=== PATIENT | male | born 1970 | race Caucasian/White ===

== ENCOUNTER 2016-08-07 14:59 | Day surgery (SDCO) | payer OTHER ==
[~2016-08-07] VITALS: Ht 195.6 cm; Wt 121.6 kg
[2016-08-07 15:25] LABS: BASOPHIL 0.3 % (0-2); HGB 16.6 g/dl (13.2-18.0); LYMPHOCYTE 37.3 % (15-48); MCH 31.3 pg (25.0-31.0); MCHC 37.7 g/dL (32.0-36.0); MPV 10.3 fL (6.0-9.5); NEUTROPHIL 51.4 % (41-80); PLT 228 K/uL (150-400); RDW 13.2 % (11.5-14.0); WBC 6.6 K/uL (4.0-10.5)
[2016-08-07 15:34] LABS: INR 1.05 (0.9-1.2); PROTHROMBIN TIME 13.3 SECONDS (11.7-14.0); PTT 23.8 SECONDS (23.2-31.4)
[2016-08-07 15:42] LABS: ALBUMIN 4.2 g/dL (3.5-5.0); BILIRUBIN - TOTAL 1.2 mg/dL (0.1-1.0); MAGNESIUM 1.79 mg/dL (1.40-2.10); POTASSIUM 4.5 mmol/L (3.5-5.1); TOTAL PROTEIN 7.2 g/dL (6.4-8.3)
[2016-08-07 16:01] LABS: CKMB 3.13 ng/mL (0.97-4.94); MYOGLOBIN 37 ng/mL (26-65); PRO-BNP 5 pg/mL (0-125); TROPONIN T < 0.010 ng/mL
[2016-08-07 21:30] LABS: CKMB 2.44 ng/mL (0.97-4.94); TROPONIN T < 0.010 ng/mL
[2016-08-08 03:32] LABS: CKMB 2.15 ng/mL (0.97-4.94); TROPONIN T < 0.010 ng/mL
== END 2016-08-08 11:45 | disposition other institution (70) ==
LOC: FER 14:59 → FICU 16:29
PROVIDERS: Emergency Medicine; ADMIT Internal Medicine
DX: I24.9 Acute ischemic heart disease, unspecified (principal); I10 Essential (primary) hypertension; K21.9 Gastro-esophageal reflux disease without esophagitis; E11.9 Type 2 diabetes mellitus without complications; Z79.84 Long term (current) use of oral hypoglycemic drugs; E66.9 Obesity, unspecified; Z68.34 Body mass index [BMI] 34.0-34.9, adult; E78.5 Hyperlipidemia, unspecified; Z82.49 Family history of ischemic heart disease and other diseases of the circulatory system; Z90.49 Acquired absence of other specified parts of digestive tract
CPT/HCPCS: 36415; 71010; 80053; 80061; 82550; 82553; 83735; 83874; 83880; 84484; 85025; 85379; 85610; 85730; 93005; 94010; G0378; J2270; J2405